=== PATIENT | male | born 1965 ===

== ENCOUNTER 2022-05-23 13:36 | Emergency (ER) | payer OTHER ==
[~2022-05-23] VITALS: Ht 177.8 cm; Wt 79.5 kg
[2022-05-23] MEDS ORDERED: LIDOCAINE 1% 10 ML VIAL PERC ONE (16:00)
[2022-05-23] MEDS ORDERED: PERTUSS(ACELL),DIPH,TET VAC/PF 0.5 ML SYRINGE IM. ONE (16:00)
[2022-05-23 17:05] VITALS: BP 186/98
[2022-05-23] MEDS ORDERED: BACI28OI29 TP (17:38)
[2022-05-23] MEDS ORDERED: CEPH-558 PO (17:39)
[2022-05-23] MEDS ORDERED: NEOMYCIN/BACITRACIN/POLYMYXIN B OINTMENT PACKET TP ONE (17:45)
== END 2022-05-23 18:02 | disposition home or self-care (01) ==
LOC: EMS 13:44
DX: S61.210A Laceration without foreign body of right index finger without damage to nail, initial encounter (principal); W26.8XXA Contact with other sharp object(s), not elsewhere classified, initial encounter; Y93.89 Activity, other specified; Y92.098 Other place in other non-institutional residence as the place of occurrence of the external cause; Y99.8 Other external cause status
CPT/HCPCS: 99283; 90715; 90471; 12002; J3490